=== PATIENT | male | born 1975 | race Caucasian/White ===

== ENCOUNTER 2023-02-18 08:02 | Day surgery (SDC) | payer OTHER ==
[2023-02-15 11:20] VITALS: BMI 26.2
[2023-02-18] MEDS ORDERED: CEFAZOLIN 2 GM VIAL ONE (08:53)
[2023-02-18] MEDS ORDERED: Sodium Chloride 0.9% 100 ML ONE (08:53)
[2023-02-18 08:54] LABS: Mean Corpuscular HGB CONC 33.6 g/dL (32.0-36.0); Mean Corpuscular Hemoglobin 30.1 pg (27.0-31.0); Mean Corpuscular Volume 89.6 fl (78.0-98.0); Mean Platelet Volume 10.5 fL (7.4-10.4); Platelet Count 185 10x3/uL (130-400); RBC Distribution Width 13.5 % (11.5-14.5); Red Blood Cell (RBC) Count 4.99 mill/uL (4.70-6.10); White Blood Cell (WBC) Count 4.1 10x3/uL (4.8-10.8)
[2023-02-18 09:25] LABS: Anion Gap 10 mmol/L (10-20); BUN (Urea Nitrogen) 15 mg/dL (8.9-20.6); Calc. Creatinine Clearance 94 mL/min (70-130); Calcium 9.2 mg/dL (7.8-10.44); Carbon Dioxide 27 mmol/L (22-29); Chloride 106 mmol/L (98-107); Estimated GFR 67; Glucose 89 mg/dL (70-105); Potassium 4.5 mmol/L (3.5-5.1); Sodium 138 mmol/L (136-145)
[2023-02-18] MEDS ORDERED: HYDROmorphone 2 MG/ML VIAL ONE (10:27)
[2023-02-18] MEDS ORDERED: fentaNYL PF 100 MCG/2 ML SYRINGE ONE ×3 (10:27→12:43)
[2023-02-18] MEDS ORDERED: Dexamethasone 20 MG/5 ML VIAL ONE (10:35)
[2023-02-18] MEDS ORDERED: PROPOFOL 200 MG/20 ML VIAL ONE (10:35)
[2023-02-18] MEDS ORDERED: PHENYLEPHRINE-NS 100 MCG/ML 10 ML SYRINGE ONE (10:35)
[2023-02-18] MEDS ORDERED: Lidocaine 1% PF 5 ML VIAL ONE (10:35)
[2023-02-18] MEDS ORDERED: GLYCOPYRROLATE/PF 0.2 MG/ML VIAL ONE (10:35)
[2023-02-18] MEDS ORDERED: ePHEDrine Sulfate 50 MG/10 ML VIAL ONE (10:35)
[2023-02-18] MEDS ORDERED: Rocuronium Bromide 10 MG/ML (10ML VIAL) ONE (10:35)
[2023-02-18] MEDS ORDERED: Ondansetron PF 4 MG/2 ML Vial ONE (10:35)
[2023-02-18] MEDS ORDERED: SUGAMMADEX SODIUM 200 MG/2 ML VIAL ONE (11:22)
[2023-02-18] MEDS ORDERED: Cyclobenzaprine 10 MG TAB ONE (12:04)
[2023-02-18] MEDS ORDERED: fentaNYL 50 mcg/mL 1 mL Vial ONE (12:21)
[2023-02-18] MEDS ORDERED: HYDROmorphone 0.5 MG/0.5 ML SYRINGE ONE (12:27)
== END 2023-02-18 15:08 | disposition home or self-care (01) ==
LOC: SDC 08:02
PROVIDERS: ATTEND Neurological Surgery
PROC: 0RG10A0 Fusion of Cervical Vertebral Joint with Interbody Fusion Device, Anterior Approach, Anterior Column, Open Approach (ICD-10-PCS; principal; 2023-02-18)
DX: M54.12 Radiculopathy, cervical region (principal); G89.29 Other chronic pain; F41.9 Anxiety disorder, unspecified; F32.A Depression, unspecified
CPT/HCPCS: 80048; 85027; 93005; 93010; C1713; J1100; J1170; J2405; J2704; J3010; J3490

== ENCOUNTER 2023-03-12 11:43 | Outpatient (CLI) | payer OTHER | END 2023-03-12 11:44 | disposition home or self-care (01) | LOC: RAD 11:43 | PROVIDERS: ATTEND Neurological Surgery | DX: M54.2 Cervicalgia (principal); M47.812 Spondylosis without myelopathy or radiculopathy, cervical region; Z98.1 Arthrodesis status; Z98.890 Other specified postprocedural states | CPT/HCPCS: 72040 ==